=== PATIENT | female | born 1955 | race Caucasian/White ===

== ENCOUNTER 2020-08-12 11:52 | Emergency (ER) | payer OTHER ==
[~2020-08-12] VITALS: Ht 160 cm; Wt 45.4 kg
[~2020-08-12 11:52] MED LIST: Tenormin25 MG PO
[2020-08-12 12:59] LABS: BASOPHILS ABSOLUTE AUTO 0.03 K/mm3 (0.00-0.23); BASOPHILS PERCENT AUTO 0 % (0-2); EOSINOPHILS ABSOLUTE AUTO 0.11 K/mm3 (0.00-0.68); EOSINOPHILS PERCENT AUTO 1 % (0-6); Hematocrit 39.4 % (33.0-51.0); Hemoglobin 13.1 g/dL (11.5-16.0); IMMATURE GRAN ABSOLUTE AUTO 0.01 K/mm3 (0.00-0.10); IMMATURE GRAN PERCENT AUTO 0 % (0-1); LYMPHOCYTES ABSOLUTE AUTO 3.68 K/mm3 (0.84-5.20); LYMPHOCYTES PERCENT AUTO 43 % (21-46); MONOCYTES ABSOLUTE AUTO 0.52 K/mm3 (0.16-1.47); MONOCYTES PERCENT AUTO 6 % (4-13); Mean Corpuscular HGB 29.2 pg (26.0-34.0); Mean Corpuscular HGB Conc 33.2 g/dL (31.5-36.5); Mean Corpuscular Volume 88 fL (80-100); Mean Platelet Volume 11.8 fL (9.1-12.4); NEUTROPHILS ABSOLUTE AUTO 4.29 K/mm3 (1.96-9.15); NEUTROPHILS PERCENT AUTO 50 % (41-73); Platelet Count 253 K/mm3 (150-400); RDW Coefficient Variation 13.1 % (11.7-14.2); RDW Standard Deviation 42.3 fL (35.1-46.3); Red Blood Cell Count 4.49 M/mm3 (3.80-5.20); White Blood Cell Count 8.64 K/mm3 (4.00-11.30)
[2020-08-12 13:10] LABS: Alanine Aminotransfer (ALT/SGP 32 U/L (12-78); Albumin, Blood 3.5 g/dL (3.4-5.0); Albumin/Globulin Ratio 0.9 (0.8-1.8); Alk Phos 95 U/L (50-136); Anion Gap 4 mmol/L (6-16); Aspartate Aminotrans (AST/SGOT 19 U/L (12-37); Bilirubin, Total 0.3 mg/dL (0.1-1.0); Blood Urea Nitrogen 21 mg/dL (8-24); Bun/Creatinine Ratio 31.5 (12.0-20.0); CO2, Blood 28 mmol/L (21-32); Calcium, Blood 9.2 mg/dL (8.5-10.1); Chloride, Blood 110 mmol/L (98-108); Creatinine, Blood 0.67 mg/dL (0.40-1.00); Globulin, Blood 3.9 g/dL (2.2-4.0); Glomerular Filtration Rate >60 (60-); Glucose, Blood 88 mg/dL (70-99); Sodium, Blood 142 mmol/L (136-145); Total Protein, Blood 7.4 g/dL (6.4-8.2); Troponin I <0.015 ng/mL (0.000-0.040)
[2020-08-12] MEDS ORDERED: Clonazepam0.25 MG SL (13:37)
[2020-08-12] MEDS ORDERED: LOSARTAN POTASS25 M2 PO (13:37)
[2020-08-12] MEDS ORDERED: OMEP20ER PO (13:38)
[2020-08-12] MEDS ORDERED: METO50ER PO (13:38)
== END 2020-08-12 14:38 | disposition home or self-care (01) ==
LOC: ER 11:52
PROVIDERS: Physician Assistant
DX: I48.92 Unspecified atrial flutter (principal); I10 Essential (primary) hypertension; Z79.899 Other long term (current) drug therapy
CPT/HCPCS: 36415; 71046; 80053; 84484; 85025; 93005; 93010; 99284-25

== ENCOUNTER 2020-08-26 20:57 | Observation (INO) | payer OTHER ==
[~2020-08-26] VITALS: Ht 160 cm; Wt 44.6 kg
[~2020-08-26 20:57] MED LIST changes: +Clonazepam0.25 MG SL; +LOSARTAN POTASS25 M2 PO; +METO50ER PO; +OMEP20ER PO
[2020-08-26] MEDS ORDERED: WARF5 PO (21:10)
[2020-08-26 21:38] LABS: BASOPHILS ABSOLUTE AUTO 0.04 K/mm3 (0.00-0.23); BASOPHILS PERCENT AUTO 0 % (0-2); EOSINOPHILS ABSOLUTE AUTO 0.13 K/mm3 (0.00-0.68); EOSINOPHILS PERCENT AUTO 1 % (0-6); Hematocrit 42.1 % (33.0-51.0); IMMATURE GRAN ABSOLUTE AUTO 0.04 K/mm3 (0.00-0.10); IMMATURE GRAN PERCENT AUTO 0 % (0-1); LYMPHOCYTES ABSOLUTE AUTO 4.13 K/mm3 (0.84-5.20); LYMPHOCYTES PERCENT AUTO 30 % (21-46); MONOCYTES ABSOLUTE AUTO 0.68 K/mm3 (0.16-1.47); MONOCYTES PERCENT AUTO 5 % (4-13); Mean Corpuscular HGB 28.9 pg (26.0-34.0); Mean Corpuscular HGB Conc 33.3 g/dL (31.5-36.5); Mean Corpuscular Volume 87 fL (80-100); Mean Platelet Volume 11.8 fL (9.1-12.4); NEUTROPHILS ABSOLUTE AUTO 8.85 K/mm3 (1.96-9.15); NEUTROPHILS PERCENT AUTO 64 % (41-73); Platelet Count 264 K/mm3 (150-400); RDW Coefficient Variation 13.1 % (11.7-14.2); RDW Standard Deviation 41.2 fL (35.1-46.3); Red Blood Cell Count 4.85 M/mm3 (3.80-5.20); White Blood Cell Count 13.87 K/mm3 (4.00-11.30)
[2020-08-26 21:57] LABS: Magnesium, Blood 2.3 mg/dL (1.6-2.4); Troponin I <0.015 ng/mL (0.000-0.040)
[2020-08-26 21:58] LABS: Alanine Aminotransfer (ALT/SGP 46 U/L (12-78); Albumin, Blood 3.9 g/dL (3.4-5.0); Alk Phos 97 U/L (50-136); Anion Gap 6 mmol/L (6-16); Aspartate Aminotrans (AST/SGOT 26 U/L (12-37); Bilirubin, Total 0.2 mg/dL (0.1-1.0); Blood Urea Nitrogen 34 mg/dL (8-24); Bun/Creatinine Ratio 41.3 (12.0-20.0); CO2, Blood 26 mmol/L (21-32); Calcium, Blood 9.4 mg/dL (8.5-10.1); Chloride, Blood 110 mmol/L (98-108); Creatinine, Blood 0.82 mg/dL (0.40-1.00); Glomerular Filtration Rate >60 (60-); Glucose, Blood 114 mg/dL (70-99); Sodium, Blood 142 mmol/L (136-145); Total Protein, Blood 7.9 g/dL (6.4-8.2)
[2020-08-26 22:06] LABS: International Normalized Ratio 3.76; Prothrombin Time Results 37.3 Sec (9.7-11.5)
--- NOTE | 2020-08-27 02:01 | NUR ---
Admit to ICU 0100 (PCU Status) Pt arrived to ICU via bed accompanied by ED nurse. Pt able to transfer to ICU bed with minimal assistance by walking. Denies CP/SOB. Pt on Diltiazem drip upon arrival, 5 mg/hr, infusing via left AC IV. NSR, per ED nurse pt converted from AFIB with RVR to NSR at 0018. A/O X 4, able to follow directions and makes needs known. Call light within reach. Pt on RA, SPO2 > 97%. Pt denies pain at this time. Will continue to monitor.
[2020-08-27 03:39] LABS: BASOPHILS ABSOLUTE AUTO 0.03 K/mm3 (0.00-0.23); BASOPHILS PERCENT AUTO 0 % (0-2); EOSINOPHILS ABSOLUTE AUTO 0.12 K/mm3 (0.00-0.68); EOSINOPHILS PERCENT AUTO 1 % (0-6); Hematocrit 37.4 % (33.0-51.0); Hemoglobin 12.6 g/dL (11.5-16.0); IMMATURE GRAN ABSOLUTE AUTO 0.02 K/mm3 (0.00-0.10); IMMATURE GRAN PERCENT AUTO 0 % (0-1); LYMPHOCYTES ABSOLUTE AUTO 4.14 K/mm3 (0.84-5.20); LYMPHOCYTES PERCENT AUTO 38 % (21-46); MONOCYTES ABSOLUTE AUTO 0.61 K/mm3 (0.16-1.47); MONOCYTES PERCENT AUTO 6 % (4-13); Mean Corpuscular HGB 29.2 pg (26.0-34.0); Mean Corpuscular HGB Conc 33.7 g/dL (31.5-36.5); Mean Corpuscular Volume 87 fL (80-100); Mean Platelet Volume 11.6 fL (9.1-12.4); NEUTROPHILS ABSOLUTE AUTO 6.13 K/mm3 (1.96-9.15); NEUTROPHILS PERCENT AUTO 55 % (41-73); Platelet Count 245 K/mm3 (150-400); RDW Coefficient Variation 13.1 % (11.7-14.2); Red Blood Cell Count 4.31 M/mm3 (3.80-5.20); White Blood Cell Count 11.05 K/mm3 (4.00-11.30)
[2020-08-27 03:57] LABS: Anion Gap 4 mmol/L (6-16); Blood Urea Nitrogen 30 mg/dL (8-24); Bun/Creatinine Ratio 46.9 (12.0-20.0); CO2, Blood 26 mmol/L (21-32); Calcium, Blood 8.8 mg/dL (8.5-10.1); Chloride, Blood 112 mmol/L (98-108); Creatinine, Blood 0.64 mg/dL (0.40-1.00); Glomerular Filtration Rate >60 (60-); Glucose, Blood 93 mg/dL (70-99); Sodium, Blood 142 mmol/L (136-145)
--- NOTE | 2020-08-27 05:14 | NUR ---
Provider call, low MAP Spoke to Dr. Cantu in regards to patients low MAPs. New orders recieved of NS 500 ml bolus. Pt continues to be A/O X 4, able to ambulate to bedside toilet with minimal assistance. Denies CP/SOB. Call light within reach.
--- NOTE | 2020-08-27 06:13 | NUR ---
Shift Summary Pt A/O X 4, cooperative and pleast. Remains in NSR to sinus edyta (HR 50-60's). On RA, SPO2 > 95%. MAP > 65 after recieving NS 500 mls bolus. Pt able to turn self in bed. Saline locked IV's. Will report to oncoming shift.
--- NOTE | 2020-08-27 08:00 | NUR ---
INITIAL ASSESSMENT PATIENT ALERT AND ORIENTED X 4, AFEBRILE. PATIENT SATTING 90% AND GREATER ON RA. LUNGS CLEAR T/O. PATIENT IN SB TO SR, HR 50S TO 60S. SBP LOW 100S TO 120S. GI WNL. WNL. SKIN APPEARS CLEAN, DRY, INTACT. IVS FLUSHED AND SALINE LOCKED. DR. GARCIA IN TO SEE PATIENT THIS AM. ORDERED HOME METOPROLOL SUCC DOSE. BED LOW, CALL LIGHT IN REACH. WILL CONTINUE TO MONITOR PATIENT FREQUENTLY THROUGHOUT SHIFT.
[2020-08-27 08:37] LABS: International Normalized Ratio 3.37
[2020-08-27 09:40] LABS: Prothrombin Time Results 33.7 Sec (9.7-11.5)
--- NOTE | 2020-08-27 12:50 | NUR ---
PATIENT AFEBRILE. HR 50S TO 60S. SBP 90S TO LOW 100S. UPDATED ON PATIENT BP AND HR AGAIN. CONTINUING TO HOLD DISCHARGE AT THIS TIME. NO OTHER ACUTE CHANGES TO NOTE ON. WILL CONTINUE TO MONITOR.
[2020-08-27] MEDS ORDERED: METO25 PO (16:49)
--- NOTE | 2020-08-27 17:25 | NUR ---
SHIFT SUMMARY/ DISCHARGE PATIENT REMAINED ALERT AND ORIENTED X 4, AFEBRILE. PATIENT REMAINED INDEPENDENT IN ROOM. PATIENT HAD NO COMPLAINTS OF PAIN. PATIENT REMAINED SATTING 90% AND GREATER ON RA. PATIENT REMAINED IN SB TO SR, HR 50S TO 60S. SBP 90S TO 120S. PATIENT HR AND BP DECREASED THIS MORNING AFTER HOME DOSE OF METOPROLOL SUCCINATE. DOCTOR HAD ORDERED FOR DISCHARGE BUT HELD DISCHARGE TO SEE IF THERE WOULD BE IMPROVEMENT IN HR AND BP. GI AND REMAINED WNL. PATIENT REPOSITIONED SELF IN BED. IVS DC'D WNL. DOCTOR JOSE INFORMED THAT PATIENT TOLERATED AMBULATING IN ROOM WELL WITH NO SYMPTOMS FROM HR IN 50S OR SBP IN 90S. INFORMED THAT PATIENT HAS SCHEDULED APPOINTMENT IN MORNING WITH HER [facility] IN [place]. DR. GARCIA HAD NURSE CHANGE 50 MG METOP SUCC TO 25 MG PO IN AM. PATIENT'S CAME AND NURSE WENT THROUGH PAPERWORK WITH PATIENT AND . PRESCRIPTIONS CALLED IN TO [facility] FOR PATIENT. PATIENT DISCHARGED TO HOME. PATIENT WHEELED OUT IN WHEELCHAIR BY [facility]. ALL BELONGINGS SENT WITH PATIENT.
== END 2020-08-27 16:50 | disposition home or self-care (01) ==
LOC: ER 20:57 → ICUE 20:58 → ICUW 20:58 → ICUE 08-27 01:01
PROVIDERS: Internal Medicine; Physician Assistant; ADMIT Internal Medicine
DX: I48.0 Paroxysmal atrial fibrillation (principal); I10 Essential (primary) hypertension; K21.9 Gastro-esophageal reflux disease without esophagitis; Z79.01 Long term (current) use of anticoagulants; Z87.891 Personal history of nicotine dependence
CPT/HCPCS: 36415; 71046; 80048; 80053; 83735; 84484; 85025; 85610; 93005; 93010; 96365; 96366; 96376; 99285-25; A9270; G0378; J7040

== ENCOUNTER 2020-09-16 21:39 | Emergency (ER) | payer OTHER ==
[~2020-09-16] VITALS: Ht 160 cm; Wt 46.7 kg
[~2020-09-16 21:39] MED LIST changes: +METO25 PO; +WARF5 PO
[2020-09-16 22:01] LABS: BASOPHILS ABSOLUTE AUTO 0.04 K/mm3 (0.00-0.23); BASOPHILS PERCENT AUTO 0 % (0-2); EOSINOPHILS ABSOLUTE AUTO 0.18 K/mm3 (0.00-0.68); EOSINOPHILS PERCENT AUTO 2 % (0-6); Hematocrit 40.9 % (33.0-51.0); Hemoglobin 13.5 g/dL (11.5-16.0); IMMATURE GRAN ABSOLUTE AUTO 0.02 K/mm3 (0.00-0.10); IMMATURE GRAN PERCENT AUTO 0 % (0-1); LYMPHOCYTES ABSOLUTE AUTO 4.31 K/mm3 (0.84-5.20); LYMPHOCYTES PERCENT AUTO 44 % (21-46); MONOCYTES ABSOLUTE AUTO 0.69 K/mm3 (0.16-1.47); MONOCYTES PERCENT AUTO 7 % (4-13); Mean Corpuscular Volume 88 fL (80-100); Mean Platelet Volume 11.4 fL (9.1-12.4); NEUTROPHILS ABSOLUTE AUTO 4.57 K/mm3 (1.96-9.15); NEUTROPHILS PERCENT AUTO 47 % (41-73); Platelet Count 261 K/mm3 (150-400); RDW Coefficient Variation 12.9 % (11.7-14.2); RDW Standard Deviation 41.4 fL (35.1-46.3); Red Blood Cell Count 4.66 M/mm3 (3.80-5.20); White Blood Cell Count 9.81 K/mm3 (4.00-11.30)
[2020-09-16 22:16] LABS: International Normalized Ratio 3.28; Prothrombin Time Results 32.8 Sec (9.7-11.5)
[2020-09-16 22:22] LABS: Alanine Aminotransfer (ALT/SGP 68 U/L (12-78); Albumin, Blood 3.8 g/dL (3.4-5.0); Alk Phos 106 U/L (50-136); Anion Gap 6 mmol/L (6-16); Aspartate Aminotrans (AST/SGOT 29 U/L (12-37); Bilirubin, Total 0.2 mg/dL (0.1-1.0); Blood Urea Nitrogen 29 mg/dL (8-24); Bun/Creatinine Ratio 43.2 (12.0-20.0); CO2, Blood 28 mmol/L (21-32); Calcium, Blood 9.5 mg/dL (8.5-10.1); Chloride, Blood 108 mmol/L (98-108); Creatinine, Blood 0.67 mg/dL (0.40-1.00); Globulin, Blood 3.9 g/dL (2.2-4.0); Glomerular Filtration Rate >60 (60-); Glucose, Blood 91 mg/dL (70-99); Potassium, Blood 3.8 mmol/L (3.5-5.5); Sodium, Blood 142 mmol/L (136-145); Total Protein, Blood 7.7 g/dL (6.4-8.2); Troponin I <0.015 ng/mL (0.000-0.040)
== END 2020-09-16 23:53 | disposition home or self-care (01) ==
LOC: ER 21:39
PROVIDERS: Physician Assistant
DX: I48.91 Unspecified atrial fibrillation (principal); I10 Essential (primary) hypertension; Z79.01 Long term (current) use of anticoagulants; Z79.899 Other long term (current) drug therapy; Z87.891 Personal history of nicotine dependence
CPT/HCPCS: 71045; 80053; 84484; 85025; 85610; 85730; 93005; 93010; 96374; 96375; 99285-25; J2060